=== PATIENT | male | born 1995 | race Asian ===

== ENCOUNTER 2016-12-17 12:05 | Emergency (ER) | payer OTHER ==
[~2016-12-17] VITALS: Ht 162.6 cm; Wt 59.0 kg
[2016-12-17 12:06] VITALS: BP 133/73
[2016-12-17] MEDS ORDERED: ZYRT10CA PO (12:12)
--- NOTE | 2016-12-17 14:08 | REP ---
CT Head without contrast HISTORY: Headache COMPARISON: None There is no intraparenchymal hemorrhage, acute infarct, mass or midline shift. An 8 mm pineal cyst is present. The ventricular system is normal in appearance. There is no extra cerebral collection. There is no fracture. The visualized sinuses are clear. IMPRESSION: There is no intracranial lesion. Signed by Anthony Perez MD 12/17/2016 01:59 P
[2016-12-17] MEDS ORDERED: ACETAMINOPHEN 325 MG TAB PO ONE (14:15)
[2016-12-17] MEDS ORDERED: KETOROLAC 30 MG/ML VIAL (J1885) IV ONE (14:15)
== END 2016-12-17 15:58 | disposition home or self-care (01) ==
LOC: M ED 13:38
DX: G43.909 Migraine, unspecified, not intractable, without status migrainosus (principal)
CPT/HCPCS: 70450; 96374; 99282; J1885